=== PATIENT | female | born 1950 | race Caucasian/White ===

== ENCOUNTER 2016-07-27 09:47 | Emergency (ER) | payer OTHER ==
[~2016-07-27] VITALS: Ht 170.2 cm; Wt 177.0 kg
[~2016-07-27 09:47] MED LIST: CAPOTEN50 MG PO; CLARITIN,ALAVAR10 MG PO; GLUCOPHAGE500 MG PO; Glucotrol PO; HUMULIN NP100 UNIT/1 SC; LASIX40 MG PO; Levothroid,Synthroid PO; Naprosyn PO; Pepcid PO; Proventil,Ventolin H IH; Tylenol Regular Stre PO; Zocor PO
[2016-07-27 11:10] LABS: EOSINOPHIL (%) 1.7 % (0-5); EOSINOPHIL COUNT 0.2 K/uL (0-0.3); HEMATOCRIT 31.3 % (36.0-46.0); IMMATURE GRANULOCYTE (%) 0.6 % (0.0-0.7); IMMATURE GRANULOCYTE COUNT 0.1 K/uL; INSTRUMENT ABS NEUTROPHIL CT 10.6 K/uL; LYMPHOCYTE COUNT 1.2 K/uL (1.0-2.8); MCH 26.7 PG (29.0-34.0); MCV 88.9 FL (83-99); MEAN PLAT.VOLUME 9.7 uM^3 (9.5-12.4); MONOCYTE (%) 5.1 % (3-12); MONOCYTE COUNT 0.7 K/uL (0-0.8); NEUTROPHIL (%) 83.1 % (45-76); NEUTROPHIL COUNT 10.6 K/uL (1.8-6.4); PLATELET COUNT 314 K/uL (156-360); RBC DIS.WIDTH-CV 15.5 % (11.8-14.6); RBC DIS.WIDTH-SD 50.4 % (39-53); RED BLOOD COUNT 3.52 M/uL (3.80-5.20); WHITE BLOOD COUNT 12.7 K/uL (4.1-10.2)
[2016-07-27 11:15] LABS: INTER. NORMALIZED RATIO 1.1; PROTHROMBIN TIME 10.8 (9.2-11.2)
[2016-07-27 11:24] LABS: CHLORIDE 101 mEq/L (99-109); SODIUM 138 mEq/L (136-147)
[2016-07-27 11:26] LABS: GLUCOSE 214 mg/dL (70-99)
[2016-07-27 11:27] LABS: ANION GAP 9 MEQ/L (2-14)
[2016-07-27 11:30] LABS: GFR ESTIMATE (CALCULATED) 43 mL/min/
[2016-07-27 11:31] LABS: UREA NITROGEN (BUN) 22 mg/dL (9-23)
[2016-07-27 14:54] VITALS: BP 125/53
== END 2016-07-27 16:40 | disposition home or self-care (01) ==
LOC: EME → EDBD 09:47 → EME 16:40
PROVIDERS: Emergency Medicine
DX: T14.8 Other injury of unspecified body region (principal); M79.604 Pain in right leg; M79.605 Pain in left leg; W18.2XXA Fall in (into) shower or empty bathtub, initial encounter; Y92.002 Bathroom of unspecified non-institutional (private) residence as the place of occurrence of the external cause; E66.9 Obesity, unspecified; I10 Essential (primary) hypertension; E11.9 Type 2 diabetes mellitus without complications; Z79.4 Long term (current) use of insulin; Z68.44 Body mass index [BMI] 60.0-69.9, adult
CPT/HCPCS: 71010; 80048; 83880; 85025; 85610; 93005; 99281; 99284